=== PATIENT | female | born 1975 | race Caucasian/White ===

== ENCOUNTER 2022-05-14 13:40 | Emergency (ER) | payer MEDICAID, SELFPAY ==
[2022-05-14] MEDS ORDERED: LORazepam 2 MG/ML SYR.(CARPUJECT) ONE (13:55)
[2022-05-14] MEDS ORDERED: levETIRAcetam 500 MG/5 ML VIAL ONE (14:13)
== END 2022-05-14 15:18 | disposition home or self-care (01) ==
LOC: ERS 13:40
DX: R56.9 Unspecified convulsions (principal); E11.9 Type 2 diabetes mellitus without complications; F17.210 Nicotine dependence, cigarettes, uncomplicated; Z79.899 Other long term (current) drug therapy
CPT/HCPCS: 96374; J1953; J2060